=== PATIENT | male | born 1960 | race Two or more races ===

== ENCOUNTER 2024-02-09 13:55 | Inpatient (IN) | payer OTHER ==
[2024-02-09 15:09] VITALS: BMI 23.5
[2024-02-09] MEDS ORDERED: LOPERAMIDE HCL 2 MG CAPSULE PO PRN (16:12)
[2024-02-09] MEDS ORDERED: ACETAMINOPHEN 325 MG TABLET (FP) PO PRN (16:12)
[2024-02-09] MEDS ORDERED: MAG HYDROX/AL HYDROX/SIMETH 30 ML UNIT-DOSE CUP PO PRN (16:12)
[2024-02-09] MEDS ORDERED: DICYCLOMINE HCL 10 MG CAPSULE PO PRN (16:12)
[2024-02-09] MEDS ORDERED: BISMUTH SUBSALICYLATE 524 MG/30 ML PO PRN (16:12)
[2024-02-09] MEDS ORDERED: MAGNESIUM HYDROX 2400MG/30ML ORAL SUSPENSION 30 ML CUP PO PRN (16:12)
[2024-02-09] MEDS ORDERED: NALOXONE (NARCAN) HCL 4 MG/0.1 ML SPRAY NS PRN (16:12)
[2024-02-09] MEDS ORDERED: guaiFENesin 600 MG TABLET.ER (FP) PO PRN (16:12)
[2024-02-09] MEDS ORDERED: POLYETHYLENE GLYCOL (HEALTHYLAX) 3350 17 GM PACKET PO PRN (16:12)
[2024-02-09] MEDS ORDERED: IBUPROFEN 400 MG TABLET (FP) PO PRN (16:12)
[2024-02-09] MEDS ORDERED: ONDANSETRON *ODT* 4 MG TABLET SL PRN (16:12)
[2024-02-09] MEDS ORDERED: BENZONATATE 200 MG CAPSULE PO PRN (16:12)
[2024-02-09] MEDS ORDERED: BENZOCAINE/MENTHOL (CHLORASEPTIC ) LOZENGE MM PRN (16:12)
[2024-02-09] MEDS ORDERED: diazePAM 5 MG TABLET ONE (16:48)
[2024-02-09] MEDS ORDERED: methaDONE HCL 10 MG TABLET (FOR DETOX USE ONLY) ONE (16:49)
[2024-02-09] MEDS: diazePAM 5 MG TABLET PO SCH (16:53)
[2024-02-09] MEDS: methaDONE HCL 10 MG TABLET PO ONE (16:53)
[2024-02-09] MEDS ORDERED: methaDONE HCL 10 MG TABLET PO PRN (18:13)
[2024-02-09] MEDS ORDERED: cloNIDine HCL 0.1 MG TABLET ONE (18:17)
[2024-02-09] MEDS ORDERED: INSULIN (NOVOLOG) ASPART 100 UNITS/ML 10ML VIAL ONE (18:17)
[2024-02-09] MEDS: INSULIN ASPART SLIDING SCALE (NOVOLOG) 1 VIAL SQ SCH (18:20)
[2024-02-09] MEDS: cloNIDine HCL 0.1 MG TABLET PO SCH (18:21)
[2024-02-09] MEDS: LIDOCAINE 4% PATCH TP SCH (19:17)
[2024-02-09] MEDS: INSULIN (LEVEMIR) 100 UNITS/ML UNITS SQ SCH (22:21)
[2024-02-09] MEDS: MELATONIN 5 MG TABLETS PO SCH (22:21)
[2024-02-09] MEDS: LIDOCAINE PATCH REMOVAL MC SCH (22:21)
[2024-02-09] MEDS: ATORVASTATIN CA 40 MG TABLET (FP) PO SCH (22:23)
[2024-02-09] MEDS: THIAMINE 100 MG TABLET PO SCH (22:23)
[2024-02-10] MEDS: amLODIPine BESYLATE 10 MG TABLET (FP) PO SCH (10:16)
[2024-02-10] MEDS: ASPIRIN COATED 81 MG TABLET.EC PO SCH (10:17)
[2024-02-10] MEDS: PANTOPRAZOLE 40 MG TABLET PO SCH (10:17)
[2024-02-10] MEDS: PRENATAL VITAMINS W/ FOLIC ACID TABLET (FP) PO SCH (10:17)
[2024-02-10] MEDS: methaDONE 40 MG, methaDONE 10 MG PO ONE (10:20)
[2024-02-10] MEDS: LOSARTAN 50MG/HCTZ 12.5MG 1 TAB PO SCH (11:29)
[2024-02-10 12:47] LABS: HEMOGLOBIN 13.8 GM/dL (11.7-16.9); MCH 30.3 pg (25.7-33.7); MCHC 32.2 g/dl (32.0-35.9); MEAN CELL VOLUME 94.1 fl (80-96); MEAN PLT VOLUME 10.4 fl (7.5-11.1); PLATELET COUNT 100 10^3/uL (134-434); RBC 4.57 M/mm3 (4.00-5.60); RDW 17.3 % (11.9-15.9); WHITE BLOOD COUNT 5.6 K/mm3 (4.0-10.0)
[2024-02-10 12:51] LABS: CHLORIDE 102 mmol/L (98-107); POTASSIUM 3.1 mmol/L (3.5-5.1); SODIUM 138 mmol/L (136-145)
[2024-02-10 12:55] LABS: CALCIUM 9.7 mg/dL (8.5-10.1)
[2024-02-10 12:56] LABS: ALBUMIN 3.8 g/dl (3.4-5.0); ANION GAP 6 mmol/L (4-13); BLOOD UREA NITROGEN 15.9 mg/dL (7-18); CO2 30 mmol/L (21-32); GLUCOSE,RANDOM 357 mg/dL (74-106)
[2024-02-10 12:59] LABS: CREATININE 1.2 mg/dL (0.55-1.3); SGPT/ALT 28 U/L (13-61)
[2024-02-10 13:00] LABS: SGOT/AST 29 U/L (15-37)
[2024-02-10 13:01] LABS: TOT PROT 7.5 g/dl (6.4-8.2)
[2024-02-10 13:02] LABS: ALK PHOS 78 U/L (45-117)
[2024-02-10] MEDS: hydrOXYzine PAMOATE 25 MG CAPSULE (FP) PO PRN (13:24)
[2024-02-10] MEDS: METHOCARBAMOL 500 MG TABLET PO PRN (13:25)
[2024-02-10] MEDS: diazePAM 5 MG TABLET PO PRN (14:44)
[2024-02-11] MEDS ORDERED: cloNIDine HCL 0.1 MG TABLET PO PRN
[2024-02-11] MEDS: diazePAM 5 MG TABLET PO SCH (05:51)
[2024-02-11] MEDS: methaDONE 40 MG, methaDONE 20 MG PO ONE (09:37)
[2024-02-11] MEDS: POTASSIUM CHLORIDE ORAL LIQUID 20 MEQ/15 ML PO ONE ×2 (11:30→14:58)
[2024-02-11] MEDS: SUVOREXANT 10 MG TABLET PO PRN (22:18)
[2024-02-12] MEDS: diazePAM 5 MG TABLET PO SCH (06:02)
[2024-02-12] MEDS ORDERED: INSULIN (NOVOLOG) ASPART 100 UNITS/ML 10ML VIAL ONE (06:06)
[2024-02-12] MEDS: methaDONE 40 MG, methaDONE 30 MG PO ONE (09:19)
[2024-02-12] MEDS: IBUPROFEN 600 MG TABLET (FP) PO PRN (10:56)
[2024-02-12] MEDS: NICOTINE POLACRILEX 2 MG GUM BUC PRN (19:18)
[2024-02-13] MEDS: diazePAM 5 MG TABLET PO ONE (05:43)
[2024-02-13] MEDS: methaDONE HCL 40 MG DISPERSABLE TABLET PO ONE (09:59)
[2024-02-13] MEDS ORDERED: INSULIN (NOVOLOG) ASPART 100 UNITS/ML 10ML VIAL ONE ×2 (11:55→17:27)
[2024-02-13 21:10] VITALS: RESP 17
[2024-02-13] MEDS ORDERED: INSULIN (LEVEMIR) 100 UNITS/ML UNITS SQ ONE (22:33)
[2024-02-14 09:00] VITALS: BP 150/85; PULSE 79; TEMP 97.6
[2024-02-14] MEDS: methaDONE 80 MG, methaDONE 10 MG PO ONE (09:53)
== END 2024-02-14 09:58 | disposition home or self-care (01) | DRG 897 ==
LOC: YASAS 13:55 → Y6N 18:01
PROVIDERS: ADMIT Allergy & Immunology; ATTEND Surgery
PROC: HZ2ZZZZ Detoxification Services for Substance Abuse Treatment (ICD-10-PCS; principal; 2024-02-09)
DX: F10.230 Alcohol dependence with withdrawal, uncomplicated (principal); F11.20 Opioid dependence, uncomplicated; F14.20 Cocaine dependence, uncomplicated; F19.282 Other psychoactive substance dependence with psychoactive substance-induced sleep disorder; F19.280 Other psychoactive substance dependence with psychoactive substance-induced anxiety disorder; F12.20 Cannabis dependence, uncomplicated; F17.210 Nicotine dependence, cigarettes, uncomplicated; F19.24 Other psychoactive substance dependence with psychoactive substance-induced mood disorder; E87.6 Hypokalemia; E78.2 Mixed hyperlipidemia; I10 Essential (primary) hypertension; E11.69 Type 2 diabetes mellitus with other specified complication; Z79.4 Long term (current) use of insulin; Z99.89 Dependence on other enabling machines and devices
CPT/HCPCS: 36415; 80053; 80305; 80307; 82247; 82962; 83036; 84132; 85027; 86780; 93005; 93010

== ENCOUNTER 2024-05-25 07:54 | Inpatient (IN) | payer OTHER ==
[2024-05-25] MEDS ORDERED: POLYETHYLENE GLYCOL (HEALTHYLAX) 3350 17 GM PACKET PO PRN (07:58)
[2024-05-25] MEDS ORDERED: guaiFENesin 600 MG TABLET.ER (FP) PO PRN (07:58)
[2024-05-25] MEDS ORDERED: IBUPROFEN 400 MG TABLET (FP) PO PRN (07:58)
[2024-05-25] MEDS ORDERED: BISMUTH SUBSALICYLATE 262 MG/15 ML BTL PO PRN (07:58)
[2024-05-25] MEDS ORDERED: BENZONATATE 200 MG CAPSULE PO PRN (07:58)
[2024-05-25] MEDS ORDERED: MAGNESIUM HYDROX 2400MG/30ML ORAL SUSPENSION 30 ML CUP PO PRN (07:58)
[2024-05-25] MEDS ORDERED: ACETAMINOPHEN 325 MG TABLET (FP) PO PRN (07:58)
[2024-05-25] MEDS ORDERED: DICYCLOMINE HCL 10 MG CAPSULE PO PRN (07:58)
[2024-05-25] MEDS ORDERED: LOPERAMIDE HCL 2 MG CAPSULE PO PRN (07:58)
[2024-05-25] MEDS ORDERED: NALOXONE (NARCAN) HCL 4 MG/0.1 ML SPRAY NS PRN (07:58)
[2024-05-25] MEDS ORDERED: BENZOCAINE/MENTHOL (CHLORASEPTIC ) LOZENGE MM PRN (07:58)
[2024-05-25] MEDS ORDERED: MAG HYDROX/AL HYDROX/SIMETH 30 ML UNIT-DOSE CUP PO PRN (07:58)
[2024-05-25] MEDS ORDERED: hydrOXYzine PAMOATE 25 MG CAPSULE (FP) PO PRN (07:58)
[2024-05-25] MEDS: INSULIN (NOVOLOG) ASPART 100 UNITS/ML 10ML VIAL SQ ONE ×2 (08:00→11:29)
[2024-05-25 08:07] VITALS: BMI 23.9
[2024-05-25] MEDS: diazePAM 5 MG TABLET PO ONE (08:23)
[2024-05-25] MEDS ORDERED: HYDROCHLOROTHIAZIDE 12.5 MG CAPSULE (FP) ONE (09:21)
[2024-05-25] MEDS ORDERED: ASPIRIN 81 MG CHEWABLE TABLETS ONE (09:21)
[2024-05-25] MEDS ORDERED: amLODIPine BESYLATE 5 MG TABLET (FP) ONE (09:21)
[2024-05-25] MEDS: ASPIRIN 81 MG CHEWABLE TABLETS PO SCH (09:27)
[2024-05-25] MEDS: HYDROCHLOROTHIAZIDE 25 MG TABLET (FP) PO SCH (09:27)
[2024-05-25] MEDS: amLODIPine BESYLATE 10 MG TABLET (FP) PO SCH (09:28)
[2024-05-25] MEDS ORDERED: PATIENT'S OWN MEDICATION (NON-FORMULARY) (Losartan/Hydrochlorothiazide [Losartan-Hctz 100- PO SCH (10:00)
[2024-05-25] MEDS: LOSARTAN POTASSIUM 50 MG TABLET PO SCH (10:41)
[2024-05-25] MEDS: FAMOTIDINE 20 MG TABLET PO SCH (10:41)
[2024-05-25] MEDS: PRENATAL VITAMINS W/ FOLIC ACID TABLET (FP) PO SCH (10:41)
[2024-05-25] MEDS: diazePAM 5 MG TABLET PO SCH (11:00)
[2024-05-25] MEDS ORDERED: INSULIN ASPART SLIDING SCALE (NOVOLOG) 1 VIAL SQ ONE (11:16)
[2024-05-25] MEDS: INSULIN ASPART SLIDING SCALE (NOVOLOG) 1 VIAL SQ SCH (11:30)
[2024-05-25] MEDS: METHOCARBAMOL 500 MG TABLET PO PRN (13:21)
[2024-05-25] MEDS: BACITRACIN 0.9 GM PACKET TP SCH (21:29)
[2024-05-25] MEDS: INSULIN GLARGINE (LANTUS) 100 UNITS/ML UNITS SQ SCH (21:32)
[2024-05-25] MEDS ORDERED: MELATONIN 5 MG TABLETS PO SCH (22:00)
[2024-05-25] MEDS: ATORVASTATIN CA 40 MG TABLET (FP) PO SCH (22:07)
[2024-05-25] MEDS: THIAMINE 100 MG TABLET PO SCH (22:07)
[2024-05-25] MEDS: SUVOREXANT 10 MG TABLET PO PRN (22:08)
[2024-05-26] MEDS ORDERED: INSULIN ASPART SLIDING SCALE (NOVOLOG) 1 VIAL SQ ONE (05:45)
[2024-05-26] MEDS: NICOTINE POLACRILEX 2 MG GUM BUC PRN (05:47)
[2024-05-26] MEDS ORDERED: BACITRACIN 0.9 GM PACKET TP SCH (10:00)
[2024-05-26 11:29] LABS: HEMATOCRIT 44.4 % (35.4-49); HEMOGLOBIN 15.1 GM/dL (11.7-16.9); MCH 30.7 pg (25.7-33.7); MCHC 33.9 g/dl (32.0-35.9); MEAN CELL VOLUME 90.4 fl (80-96); MEAN PLT VOLUME 10.1 fl (7.5-11.1); PLATELET COUNT 69 10^3/uL (134-434); RBC 4.91 M/mm3 (4.00-5.60); RDW 15.4 % (11.9-15.9); WHITE BLOOD COUNT 4.5 K/mm3 (4.0-10.0)
[2024-05-26 11:34] LABS: POTASSIUM 3.5 mmol/L (3.5-5.1)
[2024-05-26 11:38] LABS: CALCIUM 10.3 mg/dL (8.5-10.1)
[2024-05-26 11:39] LABS: ALBUMIN 4.1 g/dl (3.4-5.0); BLOOD UREA NITROGEN 16.9 mg/dL (7-18)
[2024-05-26 11:42] LABS: CREATININE 1.4 mg/dL (0.55-1.3)
[2024-05-26 11:43] LABS: BILIRUBIN,TOTAL 1.7 mg/dL (0.2-1); TOT PROT 8.3 g/dl (6.4-8.2)
[2024-05-26] MEDS: IBUPROFEN 600 MG TABLET (FP) PO PRN (14:41)
[2024-05-26] MEDS: diazePAM 5 MG TABLET PO PRN (15:58)
[2024-05-26] MEDS: INSULIN (NOVOLOG) ASPART 100 UNITS/ML 10ML VIAL SQ ONE (17:22)
[2024-05-26] MEDS ORDERED: INSULIN (NOVOLOG) ASPART 100 UNITS/ML 10ML VIAL SQ SCH (22:00)
[2024-05-27] MEDS: diazePAM 5 MG TABLET PO SCH (06:11)
[2024-05-27] MEDS ORDERED: INSULIN ASPART SLIDING SCALE (NOVOLOG) 1 VIAL SQ ONE ×2 (11:42→16:56)
[2024-05-28] MEDS: diazePAM 5 MG TABLET PO SCH (05:48)
[2024-05-28] MEDS ORDERED: INSULIN ASPART SLIDING SCALE (NOVOLOG) 1 VIAL SQ ONE ×3 (07:35→16:30)
[2024-05-28 10:10] LABS: BLOOD UREA NITROGEN 34.8 mg/dL (7-18)
[2024-05-28 10:13] LABS: CREATININE 1.4 mg/dL (0.55-1.3)
[2024-05-28] MEDS: ONDANSETRON *ODT* 4 MG TABLET SL PRN (10:20)
[2024-05-28 16:53] VITALS: RESP 16
[2024-05-28] MEDS: SUVOREXANT 10 MG TABLET PO PRN (22:24)
[2024-05-29 05:56] VITALS: PULSE 90
[2024-05-29] MEDS: diazePAM 5 MG TABLET PO ONE (06:11)
[2024-05-29] MEDS ORDERED: INSULIN ASPART SLIDING SCALE (NOVOLOG) 1 VIAL SQ ONE (07:09)
[2024-05-29 09:43] VITALS: BP 132/89; TEMP 98
== END 2024-05-29 09:14 | disposition home or self-care (01) | DRG 897 ==
LOC: YASAS 07:54 → Y3N 09:26
PROVIDERS: ADMIT Allergy & Immunology; ATTEND Allergy & Immunology
PROC: HZ2ZZZZ Detoxification Services for Substance Abuse Treatment (ICD-10-PCS; principal; 2024-05-25)
DX: F10.230 Alcohol dependence with withdrawal, uncomplicated (principal); F14.20 Cocaine dependence, uncomplicated; F12.20 Cannabis dependence, uncomplicated; F17.210 Nicotine dependence, cigarettes, uncomplicated; G47.00 Insomnia, unspecified; I10 Essential (primary) hypertension; E78.2 Mixed hyperlipidemia; E11.69 Type 2 diabetes mellitus with other specified complication; Z79.4 Long term (current) use of insulin; Z79.84 Long term (current) use of oral hypoglycemic drugs; K21.9 Gastro-esophageal reflux disease without esophagitis; J45.909 Unspecified asthma, uncomplicated; R94.31 Abnormal electrocardiogram [ECG] [EKG]; R26.89 Other abnormalities of gait and mobility; Z99.89 Dependence on other enabling machines and devices
CPT/HCPCS: 36415; 80053; 80305; 80307; 82540; 82565; 82962; 84484; 84520; 85027; 86780; 93005; 93010; Q0162